=== PATIENT | female | born 1950 | race African-American/Black ===

== ENCOUNTER 2016-08-11 20:41 | Emergency (ER) | payer MEDICARE, MEDICAID ==
[~2016-08-11] VITALS: Ht 167.6 cm; Wt 90.0 kg
[~2016-08-11 20:41] MED LIST: COR3 PO; FURO-152 PO; LIP40 PO; LOSA100T11 PO; VIC; tramadol
[2016-08-11] MEDS ORDERED: PANTOPRAZOLE SODIUM 40 MG/VIAL IV STA (21:29)
[2016-08-11] MEDS ORDERED: MORPHINE SULFATE 4 MG/ML CPJ (NOT FOR IM USE) IV STA ×2 (21:29)
[2016-08-11] MEDS ORDERED: ONDANSETRON HCL 4MG/2ML VIAL IV STA ×2 (21:29)
[2016-08-11] MEDS ORDERED: SODIUM CHLORIDE 0.9% 1,000 ML IV ONE (21:29)
[2016-08-11 21:56] LABS: HEMOGLOBIN. 13.1 g/dL (12.0-16.0); MEAN CORPUSCULAR HEMOGLOBIN 30.3 pg (28.0-32.0); MEAN CORPUSCULAR HGB CONC 33.6 g/dL (31.0-37.0); MEAN CORPUSCULAR VOLUME 90.1 fL (81.0-99.0); MEAN PLATELET VOLUME 7.7 fl (7.4-10.4); PLATELET 181 x1000/uL (130-400); RED BLOOD CELL COUNT 4.33 mill/uL (4.2-5.4); RED CELL DISTRIBUTION WIDTH 14.8 % (11.6-14.6); WHITE BLOOD COUNT 8.6 x1000/uL (4.5-11.0)
[2016-08-11 21:58] LABS: DIFFERENTIAL COMMENT 1
[2016-08-11 22:17] LABS: ALANINE AMINOTRANSFERASE 14 IU/L (13-61); ALBUMIN 3.1 g/dL (3.4-5.0); ANION GAP 10; CALCIUM 8.2 mg/dL (8.5-10.1); CARBON DIOXIDE 25 mEq/L (21-32); CHLORIDE 112 mEq/L (98-107); ETHANOL BLOOD < 10 mg/dL; INDEX HEMOLYSI 1 (1-3); INDEX ICTERIC 1 (1-4); INDEX LIPEMIC 1 (1-3); LIPASE 163 IU/L (73-393); NT PRO B-TYPE NATRIURETIC PEP 217 pg/mL (5-125); UREA NITROGEN BLOOD 10 mg/dL (7-21); eGFR > 60 mL/min (>60)
[2016-08-11 22:19] LABS: PLATELET ESTIMATE NORMAL
[2016-08-11 22:49] LABS: GLUCOSE URINE NEGATIVE (NEGATIVE); KETONES URINE NEGATIVE (NEGATIVE); LEUKOCYTE ESTERASE URINE 2+ (NEGATIVE); NITRITE URINE NEGATIVE (NEGATIVE); OCCULT BLOOD URINE 2+ (NEGATIVE); PROTEIN URINE TRACE (NEGATIVE); SPECIFIC GRAVITY URINE 1.029 (1.005-1.030); UROBILINOGEN URINE 0.2 E.U./dL (0.2-1.0)
[2016-08-11 22:50] LABS: CLARITY URINE CLOUDY (CLEAR); COLOR URINE YELLOW (YELLOW)
[2016-08-11 23:05] LABS: SQUAMOUS EPITHELIAL CELL URINE 2+ /lpf (RARE/1+)
[2016-08-11 23:08] LABS: BACTERIA URINE 3+
[2016-08-11 23:14] LABS: *AMPHETAMINES SCREEN URINE NEGATIVE (NEGATIVE); *BARBITURATES SCREEN URINE NEGATIVE (NEGATIVE); *BENZODIAZEPINES SCREEN URINE NEGATIVE (NEGATIVE); *COCAINE SCREEN URINE NEGATIVE (NEGATIVE); CANNABINOID URINE SCREEN PRESUMTIVE POSITIVE (NEGATIVE); ECSTASY MDMA SCREEN URINE NEGATIVE (NEGATIVE); METHADONE URINE SCREEN NEGATIVE (NEGATIVE); OPIATES URINE SCREEN PRESUMTIVE POSITIVE (NEGATIVE); PHENCYCLIDINE URINE SCREEN NEGATIVE (NEGATIVE)
[2016-08-12 02:57] VITALS: BP 152/82
== END 2016-08-12 03:19 | disposition home or self-care (01) ==
LOC: ER 20:42
DX: K52.9 Noninfective gastroenteritis and colitis, unspecified (principal); I10 Essential (primary) hypertension; F20.9 Schizophrenia, unspecified; F32.9 Major depressive disorder, single episode, unspecified; F31.9 Bipolar disorder, unspecified; Z88.6 Allergy status to analgesic agent; Z90.710 Acquired absence of both cervix and uterus
CPT/HCPCS: 36415; 71010; 74176; 80053; 80305; 81001; 83605; 83690; 83880; 84484; 85025; 85379; 93005; 96361; 96374; 96375; 99285; C9113; G0482; J2270; J2405; J7030

== ENCOUNTER 2018-12-17 23:32 | Emergency (ER) | payer MEDICARE, MEDICAID ==
[~2018-12-17] VITALS: Ht 167.6 cm; Wt 82.0 kg
[~2018-12-17 23:32] MED LIST changes: -LOSA100T11 PO; +LOSA100T3 PO
[2018-12-18] MEDS ORDERED: ONDANSETRON HCL 4MG/2ML INJ IV STA (00:19)
[2018-12-18] MEDS ORDERED: MORPHINE SULFATE 4 MG/ML CPJ (NOT FOR IM USE) IV STA (00:19)
[2018-12-18 01:06] LABS: BASOPHILS % 1.1 % (0.0-2.0); EOSINOPHILS % 1.3 % (0.0-5.0); HEMOGLOBIN. 14.7 g/dL (12.0-16.0); LYMPHOCYTES % 31.6 % (20.0-50.0); MEAN CORPUSCULAR HEMOGLOBIN 30.4 pg (28.0-32.0); MEAN PLATELET VOLUME 8.3 fl (7.4-10.4); MONOCYTES % 4.3 % (2.0-8.0); NEUTROPHILS % 61.7 % (40.0-76.0); PLATELET 154 x1000/uL (130-400); RED BLOOD CELL COUNT 4.84 mill/uL (4.2-5.4); RED CELL DISTRIBUTION WIDTH 14.8 % (11.6-14.6)
[2018-12-18 01:07] LABS: CHLORIDE 112 mEq/L (98-107)
[2018-12-18 06:00] VITALS: BP 175/72
== END 2018-12-18 06:23 | disposition home or self-care (01) ==
LOC: ER 23:32
DX: S06.0X0A Concussion without loss of consciousness, initial encounter (principal); Y08.89XA Assault by other specified means, initial encounter; Y93.89 Activity, other specified; Y92.89 Other specified places as the place of occurrence of the external cause; Y99.8 Other external cause status; F31.9 Bipolar disorder, unspecified; I10 Essential (primary) hypertension; F20.9 Schizophrenia, unspecified; Z79.899 Other long term (current) drug therapy; Z88.5 Allergy status to narcotic agent
CPT/HCPCS: 36415; 70450; 71045; 80048; 85025; 93005; 96374; 96375; 99284; J2270; J2405

== ENCOUNTER 2019-03-09 11:09 | Emergency (ER) | payer MEDICARE, MEDICAID ==
[~2019-03-09] VITALS: Ht 167.6 cm; Wt 78.0 kg
[2019-03-09] MEDS ORDERED: IBUPROFEN 600MG TABLET PO STA (11:47)
[2019-03-09] MEDS ORDERED: BACITRACIN ZINC OINT UDPKT TOP ONE (12:00)
[2019-03-09 12:08] VITALS: BP 162/58
== END 2019-03-09 14:31 | disposition home or self-care (01) ==
LOC: ER 11:09
DX: S80.212A Abrasion, left knee, initial encounter (principal); F20.9 Schizophrenia, unspecified; F31.9 Bipolar disorder, unspecified; I10 Essential (primary) hypertension; W19.XXXA Unspecified fall, initial encounter; Y93.01 Activity, walking, marching and hiking; Y92.89 Other specified places as the place of occurrence of the external cause; Y99.8 Other external cause status; Z88.5 Allergy status to narcotic agent; Z86.59 Personal history of other mental and behavioral disorders
CPT/HCPCS: 73562; 99283

== ENCOUNTER → 2020-08-14 | Outpatient (CLI) | payer MEDICARE, MEDICAID ==
[~2020-08-14] MED LIST changes: +ABIL5 MT; +DIFL5DRO LEFTEYE; +DOXY100C2 PO; +ERGO500013 PO; +HYDR100T26 PO; +OLME40TA11 PO; +PRED10TA23 PO; +VIGAMX LEFTEYE
== END | disposition home or self-care (01) ==
LOC: LAB 10:02
PROVIDERS: ATTEND Surgery
DX: Z01.812 Encounter for preprocedural laboratory examination (principal); Z20.822 Contact with and (suspected) exposure to COVID-19
CPT/HCPCS: 87426

== ENCOUNTER 2020-08-15 06:37 | Inpatient (IN) | payer MEDICARE, MEDICAID ==
[~2020-08-15] VITALS: Ht 167.6 cm; Wt 78.0 kg
[~2020-08-15 06:37] MED LIST changes: -ABIL5 MT; -DIFL5DRO LEFTEYE; -ERGO500013 PO; -HYDR100T26 PO; -OLME40TA11 PO; +SODIUM CHLORIDE 0.9% 1,000 ML IV SCH; -VIGAMX LEFTEYE
[2020-08-15] MEDS ORDERED: OLME40TA11 PO (10:56)
[2020-08-15] MEDS ORDERED: ERGO500013 PO (10:56)
[2020-08-15] MEDS ORDERED: HYDR100T26 PO (10:56)
[2020-08-15] MEDS ORDERED: DIFL5DRO LEFTEYE (11:08)
[2020-08-15] MEDS ORDERED: VIGAMX LEFTEYE (11:08)
[2020-08-15] MEDS ORDERED: METHYLENE BLUE 50 MG/10 ML AMP IV ONE (11:13)
[2020-08-15] MEDS ORDERED: GENTAMICIN SULF 40MG/ML 2ML VIAL ONE (11:13)
[2020-08-15] MEDS ORDERED: CEFAZOLIN SODIUM 1000MG/VIAL ONE (11:13)
[2020-08-15] MEDS ORDERED: SKIN ADHESIVE 0.7 GM EA TOP ONE ×2 (11:13→14:43)
[2020-08-15] MEDS ORDERED: POLYMYXIN B SULFATE 500000 UNITS/VIAL ONE (11:13)
[2020-08-15] MEDS ORDERED: MIDAZOLAM HCL 2 MG/2 ML VIAL ONE (11:47)
[2020-08-15] MEDS ORDERED: FENTANYL CITRATE/PF 50MCG/ML 2ML VIAL ONE ×2 (11:47→12:39)
[2020-08-15] MEDS ORDERED: PROPOFOL 200MG/20ML VIAL IV ONE (11:47)
[2020-08-15] MEDS ORDERED: LABETALOL 5MG/ML SYR 20 MG/4 ML SYRINGE IV PRN (12:15)
[2020-08-15] MEDS ORDERED: MEPERIDINE HCL/PF 25MG/ML CPJ IV PRN (12:15)
[2020-08-15] MEDS ORDERED: ONDANSETRON HCL 4MG/2ML INJ IV PRN ×2 (12:15→16:15)
[2020-08-15] MEDS ORDERED: HYDROMORPHONE HCL/PF 2MG/ML CPJ IV PRN (12:15)
[2020-08-15] MEDS ORDERED: ONDANSETRON HCL 4MG/2ML INJ ONE (12:20)
[2020-08-15] MEDS ORDERED: HYDROMORPHONE HCL/PF 2MG/ML (OR) ONE (13:14)
[2020-08-15] MEDS ORDERED: MORPHINE SULFATE 4 MG/ML CPJ (NOT FOR IM USE) IV PRN (16:15)
[2020-08-15] MEDS ORDERED: OXYCODONE HCL/ACETAMINOPHEN 5/325MG TABLET PO PRN (16:30)
[2020-08-15 18:24] LABS: BASOPHILS % 0.2 % (0.0-2.0); HEMATOCRIT. 38.8 % (36.0-48.0); HEMOGLOBIN. 12.8 g/dL (12.0-16.0); LYMPHOCYTES % 9.1 % (20.0-50.0); MEAN CORPUSCULAR HEMOGLOBIN 30.4 pg (28.0-32.0); MEAN CORPUSCULAR VOLUME 92.5 fL (81.0-99.0); MEAN PLATELET VOLUME 8.1 fl (7.4-10.4); MONOCYTES % 1.9 % (2.0-8.0); NEUTROPHILS % 88.8 % (40.0-76.0); PLATELET 171 x1000/uL (130-400); RED CELL DISTRIBUTION WIDTH 14.8 % (11.6-14.6)
[2020-08-15 18:32] LABS: CHLORIDE 117 mEq/L (98-107)
[2020-08-15 18:42] LABS: B-HCG QUANTITATIVE 4 mIU/mL (<3)
[2020-08-15 20:00] VITALS: BP 148/57
[2020-08-15] MEDS: CEFAZOLIN 1000MG PREMIX 50 ML IV SCH (22:10)
[2020-08-15] MEDS: FAMOTIDINE 20MG/2ML VIAL IV SCH (22:10)
[2020-08-15] MEDS: DEXT 5%/0.45% NACL KCL 20MEQ/L 1,000 ML IV SCH (22:10)
[2020-08-15] MEDS: MORPHINE SULFATE 2 MG/ML CPJ (NOT FOR IM USE) IV PRN (22:12)
[2020-08-15] MEDS ORDERED: ABIL5 MT (23:01)
[2020-08-16] VITALS: BP_SYST 112; BP_SYST 133; BP_DIAS 55; BP_DIAS 76
[2020-08-16] MEDS: MORPHINE SULFATE 2 MG/ML CPJ (NOT FOR IM USE) IV PRN (03:38)
[2020-08-16 04:00] VITALS: BP 112/55
[2020-08-16] MEDS: CEFAZOLIN 1000MG PREMIX 50 ML IV SCH (05:50)
[2020-08-16 06:27] LABS: CHLORIDE 113 mEq/L (98-107)
[2020-08-16 06:29] LABS: BASOPHILS % 0.2 % (0.0-2.0); EOSINOPHILS % 0.1 % (0.0-5.0); HEMATOCRIT. 35.3 % (36.0-48.0); HEMOGLOBIN. 11.4 g/dL (12.0-16.0); MEAN CORPUSCULAR HEMOGLOBIN 30.2 pg (28.0-32.0); MEAN CORPUSCULAR VOLUME 93.8 fL (81.0-99.0); MEAN PLATELET VOLUME 8.9 fl (7.4-10.4); NEUTROPHILS % 63.7 % (40.0-76.0); PLATELET 146 x1000/uL (130-400); RED BLOOD CELL COUNT 3.76 mill/uL (4.2-5.4); RED CELL DISTRIBUTION WIDTH 14.8 % (11.6-14.6)
[2020-08-16 06:35] LABS: PHOSPHORUS 2.6 mg/dL (2.5-4.9)
[2020-08-16 08:00] VITALS: BP 152/64
[2020-08-16] MEDS: FAMOTIDINE 20MG/2ML VIAL IV SCH (10:07)
[2020-08-16] MEDS: DEXT 5%/0.45% NACL KCL 20MEQ/L 1,000 ML IV SCH (10:07)
[2020-08-16 11:21] VITALS: BP 152/64
== END 2020-08-16 13:05 | disposition home or self-care (01) | DRG 581 ==
LOC: OR 06:37 → EDSTATUS 11:00 → 6EST 20:08
PROVIDERS: ADMIT Surgery; ATTEND Surgery
PROC: 07B60ZX Excision of Left Axillary Lymphatic, Open Approach, Diagnostic (ICD-10-PCS; principal; 2020-08-14)
PROC: 0HTV0ZZ Resection of Bilateral Breast, Open Approach (ICD-10-PCS; 2020-08-14)
PROC: 0HRV0JZ Replacement of Bilateral Breast with Synthetic Substitute, Open Approach (ICD-10-PCS; 2020-08-14)
DX: C50.912 Malignant neoplasm of unspecified site of left female breast (principal); I10 Essential (primary) hypertension; E78.5 Hyperlipidemia, unspecified; F20.9 Schizophrenia, unspecified; F32.9 Major depressive disorder, single episode, unspecified; M54.10 Radiculopathy, site unspecified
CPT/HCPCS: 36415; 78195; 80048; 83735; 84100; 84702; 85025; 87426; 88305; 88331; J0690; J1170; J1580; J2250; J2270; J2405; J2704; J3010; J3490; Q9968; L8600

== ENCOUNTER → 2021-02-09 | Outpatient (CLI) | payer MEDICARE, MEDICAID ==
[~2021-02-09] MED LIST changes: +AMOX-424 MT; -COR3 PO; -DOXY100C2 PO; -FURO-152 PO; -LIP40 PO; +LORA10CA MT; -LOSA100T3 PO; +P20 MT; -PRED10TA23 PO; -SODIUM CHLORIDE 0.9% 1,000 ML IV SCH; -VIC; -tramadol
== END | disposition home or self-care (01) ==
LOC: US 09:33
PROVIDERS: ATTEND Surgery
DX: N63.20 Unspecified lump in the left breast, unspecified quadrant (principal); R92.8 Other abnormal and inconclusive findings on diagnostic imaging of breast
CPT/HCPCS: 76641

== ENCOUNTER → 2021-03-08 | Day surgery (SDC) | payer MEDICARE, MEDICAID | END | disposition home or self-care (01) | LOC: RAD 08:11 | PROVIDERS: ATTEND Surgery | DX: N63.12 Unspecified lump in the right breast, upper inner quadrant (principal); Z53.8 Procedure and treatment not carried out for other reasons; R92.8 Other abnormal and inconclusive findings on diagnostic imaging of breast; Z79.899 Other long term (current) drug therapy; Z82.49 Family history of ischemic heart disease and other diseases of the circulatory system; Z83.3 Family history of diabetes mellitus; Z20.822 Contact with and (suspected) exposure to COVID-19 | CPT/HCPCS: 19083; 76641; 87426 ==

== ENCOUNTER → 2024-09-24 | Outpatient (CLI) | payer MEDICARE, MEDICAID ==
[~2024-09-24] MED LIST changes: -AMOX-424 MT; +ASPI-1497 MT; +CLOP-31 MT; +LOSA50TA41 MT; -P20 MT
== END | disposition home or self-care (01) ==
LOC: US 09:26
PROVIDERS: ATTEND Surgery
DX: N64.52 Nipple discharge (principal); Z98.82 Breast implant status
CPT/HCPCS: 76642